=== PATIENT | female | born 1970 | race Caucasian/White ===

== ENCOUNTER 2017-04-05 16:18 | Emergency (ER) | payer OTHER ==
[~2017-04-05] VITALS: Ht 165.1 cm; Wt 108.9 kg
[~2017-04-05 16:18] MED LIST: ALPR0.5T PO; BYSTOLIC20 MG PO; CETI10TA22 PO; Doxycycline Hyclate PO; FLUT1DIS3 IH; Fentanyl TD; LEVO500T59 PO; METH4TAB2 PO; NITR0.4T22 SL; PANT40TA3 PO; PRED20TA PO; TRAM-48 PO; TRAM50TA PO
[2017-04-05] MEDS ORDERED: fentaNYL PF VIAL 100 MCG/2 ML VIAL IV ONE (19:00)
[2017-04-05] MEDS ORDERED: KETOROLAC 30 MG/ML INJ. IV ONE (19:00)
[2017-04-05] MEDS ORDERED: ONDANSETRON PF 4 MG/2 ML VIAL. IV ONE (19:00)
[2017-04-05 19:10] LABS: BILIRUBIN,URINE SMALL (NEG); GLUCOSE,URINE NEGATIVE (NEG); NITRITE,URINE NEGATIVE (NEG); PROTEIN,URINE 30 mg/dL (NEG-TRACE); UROBILINOGEN,URINE 0.2 mg/dL (0.2 mg/dL)
[2017-04-05 19:33] LABS: BACTERIA,URINE FEW /HPF (0-FEW); RBC,URINE 0 /HPF (0-2); SQUAMOUS EPITHELIAL CELL,UR OCC /LPF; WBC,URINE OCC /HPF (0-4)
[2017-04-05 20:04] VITALS: BP 116/74
--- NOTE | 2017-04-05 21:05 | PHYS DOC ---
Past Medical History Past Medical History: Hypertension, Other Additional Past Medical Histor: ELEVATED D-DIMER, PALPITATIONS Past Surgical History: Appendectomy, Cholecystectomy, , Hysterectomy Alcohol Use: None Drug Use: None Adult General Chief Complaint Chief Complaint: OTHER COMPLAINTS HPI HPI Patient is a 46 year old femake with history of chronic back pain of several weeks' duration currently under management by Dr. 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 Patient is taking tramadol every 6 hours with limited improvement. She is scheduled to undergo epidural injection in 3 days. Patient states pain is pearly controlled. She is further concern of increased urinary frequency and urgency and incontinence. Denies saddle anesthesia, new weakness or numbness of right lower extremity. Review of Systems Review of Systems Review symptoms as per history of present illness. All other review symptoms are negative. Current Medications Current Medications Current Medications Medications (Trade) Dose Ordered Sig/Jayy Start Time Stop Time Status Last Admin Dose Admin Fentanyl Citrate (Fentanyl 2ml Vial) 75 mcg 1X ONCE 04/05/17 19:00 04/05/17 19:02 DC 04/05/17 19:16 75 MCG Ketorolac Tromethamine (Toradol) 30 mg 1X ONCE 04/05/17 19:00 04/05/17 19:02 DC 04/05/17 19:15 30 MG Ondansetron HCl (Zofran) 4 mg 1X ONCE 04/05/17 19:00 04/05/17 19:02 DC 04/05/17 19:15 4 MG Allergies Allergies Allergies Coded Allergies Type Severity Reaction Last Updated Verified codeine Allergy Intermediate 11/06/14 Yes morphine Allergy Intermediate 11/06/14 Yes Physical Exam Physical Exam Constitutional: Well developed, well nourished, moderate discomfort secondary pain. [] HENT: Normocephalic, atraumatic, bilateral external ears normal, oropharynx moist, no oral exudates, nose normal. [] Eyes: PERRLA, EOMI, conjunctiva normal, no discharge. [] Neck: Normal range of motion, no tenderness, supple, no stridor. [] Cardiovascular:Heart rate regular rhythm, no murmur [] Lungs & Thorax: Bilateral breath sounds clear to auscultation [] Abdomen: Bowel sounds normal, soft, no tenderness. [] Skin: Warm, dry, no erythema, no rash. [] Back: Diffuse low back pain. [] Extremities: No tenderness, no cyanosis, no clubbing, ROM intact, no edema. [] Neurologic: Alert and oriented, normal motor function, normal sensory function, no focal deficits noted. [] Psychologic: Affect normal, judgement normal, mood normal. [] Current Patient Data Vital Signs Vital Signs Date Time Temp Pulse Resp B/P (MAP) Pulse Ox O2 Delivery O2 Flow Rate FiO2 04/05/17 20:04 75 20 116/74 (88) 96 04/05/17 19:16 Room Air 04/05/17 16:49 98.6 98.6 Lab Values Laboratory Tests Test 04/05/17 16:38 Urine Collection Type Unknown Urine Color Kayy Urine Clarity Clear Urine pH 6.0 Urine Specific Calhoun >=1.030 Urine Protein 30 mg/dL (NEG-TRACE) Urine Glucose (UA) Negative mg/dL (NEG) Urine Ketones (Stick) Negative mg/dL (NEG) Urine Blood Negative (NEG) Urine Nitrite Negative (NEG) Urine Bilirubin Small (NEG) Urine Urobilinogen Dipstick 0.2 mg/dL (0.2 mg/dL) Urine Leukocyte Esterase Negative (NEG) Urine RBC 0 /HPF (0-2) Urine WBC Occ /HPF (0-4) Urine Squamous Epithelial Cells Occ /LPF Urine Bacteria Few /HPF (0-FEW) EKG EKG [] Radiology/Procedures Radiology/Procedures [] Course & Med Decision Making Course & Med Decision Making Pertinent Labs and Imaging studies reviewed. (See chart for details) [No focal neurologic deficits. Patient's UA is negative. Bladder scan reveals residual 32 mL's of bladder and urine. Pain addressed with improvement. Recommend increased outpatient supportive care and pain management with epidural steroid injection as scheduled. Further management per patient's PCP and specialist.] Dragon Disclaimer Dragon Disclaimer This electronic medical record was generated, in whole or in part, using a voice recognition dictation system. Departure Departure Impression: Primary Impression: Back pain Disposition: 01 HOME, SELF-CARE Condition: GOOD Patient Instructions: Radicular Pain Additional Instructions: Please go home and rest. Take ibuprofen for pain and Percocet as for additional relief. Follow-up with your outpatient pain management appointment ANJEL RAMESH DO Apr 05, 2017 21:05
== END 2017-04-05 20:04 | disposition home or self-care (01) ==
LOC: ER 16:18
DX: G89.29 Other chronic pain (principal); M54.5 Low back pain; I10 Essential (primary) hypertension; Z90.49 Acquired absence of other specified parts of digestive tract; Z90.710 Acquired absence of both cervix and uterus; Z98.890 Other specified postprocedural states; Z88.5 Allergy status to narcotic agent
CPT/HCPCS: 81001; 96374; 96375; 99284; J1885; J2405; J3010